=== PATIENT | female | born 1945 ===

== ENCOUNTER 2017-01-30 14:46 | Emergency (ER) | payer MEDICAID ==
[2017-01-30 14:46] VITALS: BMI 25.0
[2017-01-30 14:50] VITALS: O2SAT 97
[2017-01-30 15:36] LABS: RBC URINE 22 /hpf (0-3); URINE BACTERIA OCC (<OCC); URINE BILIRUBIN NEGATIVE (NEGATIVE); URINE BLOOD 3+ (NEGATIVE); URINE COLOR Straw (YELLOW); URINE GLUCOSE (UA) NORMAL (Normal); URINE KETONE NEGATIVE (NEGATIVE); URINE LEUKOCYTE ESTERASE 3+ Leu/uL (Negative); URINE PROTEIN NEGATIVE (NEGATIVE); URINE UROBILINOGEN NORMAL mg/dL (0.2-1.0); WBC URINE 128 /hpf (0-5)
--- NOTE | 2017-01-30 15:56 | C.PDOC ---
History Of Present Illness The patient, a 71 y/o female, presents to the ED for evaluation of dysuria since yesterday and vaginal bleeding. Patient states she was evaluated by her OB /DATABASE DEVELOPMENT PROJECT MANAGER yesterday and experienced bleeding from the area. Today, patient is experiencing dysuria and states her bleeding has lightened. Patient is scheduled for outpatient Ultrasound on 02/06. Patient denies fever, chills, abdominal pain, nausea, vomiting. Time Seen by Provider: 01/30/17 15:16 Chief Complaint (Nursing): Female Genitourinary History Per: Patient History/Exam Limitations: no limitations Onset/Duration Of Symptoms: Days Current Symptoms Are (Timing): Still Present Quality Of Discomfort: "Pain" Additional History Per: Patient Past Medical History Reviewed: Historical Data, Nursing Documentation, Vital Signs Vital Signs: Last Vital Signs Temp 98.0 F 01/30/17 17:32 Pulse 72 01/30/17 17:32 Resp 18 01/30/17 17:32 BP 194/80 H 01/30/17 17:32 Pulse Ox 97 01/30/17 17:32 - Medical History PMH: HTN Surgical History: No Surg Hx Family History: States: Unknown Family Hx - Social History Hx Alcohol Use: No Hx Substance Use: No Review Of Systems Except As Marked, All Systems Reviewed And Found Negative. Constitutional: Negative for: Fever, Chills Gastrointestinal: Negative for: Nausea, Vomiting, Abdominal Pain Genitourinary: Positive for: Dysuria, Vaginal Bleeding Physical Exam - Physical Exam Appears: Non-toxic, No Acute Distress Skin: Normal Color, Warm, Dry Head: Atraumatic, Normacephalic Eye(s): bilateral: Normal Inspection, EOMI Oral Mucosa: Moist Neck: Supple Chest: Symmetrical, No Deformity, No Tenderness Cardiovascular: Rhythm Regular Respiratory: Normal Breath Sounds Gastrointestinal/Abdominal: Soft, No Tenderness, No Guarding, No Rebound Back: Normal Inspection, No Vertebral Tenderness, No Paraspinal Tenderness Pelvic: Vaginal Bleeding (light spotting), Mass (abnormal soft mass tender to right vaginal wall side) Extremity: Normal ROM, No Tenderness, No Pedal Edema, No Deformity, No Swelling Neurological/Psych: Oriented x3, Normal Speech Gait: Steady ED Course And Treatment - Laboratory Results Result Diagrams: 01/30/17 15:48 01/30/17 15:48 Lab Interpretation: No Acute Changes O2 Sat by Pulse Oximetry: 97 (on RA) Pulse Ox Interpretation: Normal - CT Scan/US Pelvic/Transvaginal US Other Rad Studies (CT/US): Interpreted By Me, Read By Radiologist, Radiology Report Reviewed CT/US Interpretation: Accession No. : [id number]. Patient Name / ID : MANAV TERRAZAS / [id number]. Exam Date : 01/30/2017 15:50:44 ( Approved ). Study Comment : Sex / Age : F / 71Y. Creator : Alexa Barillas MD. Dictator : Alexa Barillas MD. Independent Marketing Consultant : Auto Body Repairer : Alexa Barillas MD. Approver2 : Report Date : 01/30/2017 16:26:26. My Comment : . HISTORY: pelvic mass and bleeding, pain. COMPARISON: None available. TECHNIQUE: Pelvis/transvaginal ultrasound. FINDINGS: UTERUS: Measures 7.0 x 4.2 x 5.2 cm. Heterogeneous uterine echotexture limits evaluation for small masses or fibroids. ENDOMETRIUM: Measures 2 mm in diameter. CERVIX: No cervical abnormality identified. RIGHT OVARY: Not visualized. LEFT OVARY: Not visualized. FREE FLUID: No significant free fluid noted. OTHER FINDINGS: None. IMPRESSION: Markedly limited study. Bilateral ovaries were not visualized. Heterogeneous uterine echotexture limits evaluation for small masses or fibroids. Endometrial thickness approximately 2 mm. Medical Decision Making Medical Decision Making: Impression: 71 y/o female with dysuria and bleeding Plan: * labs Progress Notes: labs and Pelvic US ordered and reviewed. Patient refuses full pelvic examination. US IMPRESSION: Markedly limited study. Bilateral ovaries were not visualized. Heterogeneous uterine echotexture limits evaluation for small masses or fibroids. Endometrial thickness approximately 2 mm. UA was positive for UTI. Macrobid was ordered. I explained results to patient and provided copy of US report. Advised follow up with pig handler and to take antibiotics. . Disposition Counseled Patient/Family Regarding: Diagnosis, Need For Followup, Rx Given - Disposition Disposition: HOME/ ROUTINE Disposition Time: 16:39 Condition: STABLE Additional Instructions: [place] el antibitico dos veces al da y asegrese de terminar de edith todos los antibiticos. Beber mucho lquido. Si se realiz un cultivo de orina, vuelva a llamar para obtener resultados en 2-3 jarvis para confirmar que el antibitico est tratando estuardo la infeccin urinaria. Debe seguir con ginecloga Prescriptions: Nitrofurantoin Macrocrystals [Macrobid] 1 cap PO BID #14 cap Instructions: Urinary Tract Infection in Women (DC) Print Language: [place] - POA Present On Arrival: None - Clinical Impression Clinical Impression: UTI (urinary tract infection), Vaginal mass - PA / CONCRETING SUPERVISOR / Resident Statement MD/DO has reviewed & agrees with the documentation as recorded. - Scribe Statement The provider has reviewed the documentation as recorded by the Scribe (Ligia Vaughan) All medical record entries made by the Scribe were at my direction and personally dictated by me. I have reviewed the chart and agree that the record accurately reflects my personal performance of the history, physical exam, medical decision making, and the department course for this patient. I have also personally directed, reviewed, and agree with the discharge instructions and disposition.
[2017-01-30 15:57] LABS: BASO % 0.8 % (0.0-2.0); EOS # 0.1 K/uL (0.0-0.7); EOS % 1.7 % (0.0-4.0); HEMATOCRIT 44.4 % (34.0-47.0); LYMPH # 1.2 K/uL (1.0-4.3); LYMPH % 29.6 % (20.0-40.0); MEAN CELL VOLUME 87.6 fL (81.0-99.0); MEAN CORPUSCULAR HEMOGLOBIN 28.6 pg (27.0-31.0); MEAN CORPUSCULAR HGB CONC 32.6 g/dL (33.0-37.0); MEAN PLATELET VOLUME 6.8 fL (7.2-11.7); MONO # 0.4 K/uL (0.0-0.8); MONO % 10.9 % (0.0-10.0); RED CELL DISTRIBUTION WIDTH 13.6 % (11.5-14.5)
[2017-01-30 16:06] LABS: CHLORIDE 96 mmol/L (98-107); POTASSIUM 3.3 mmol/L (3.6-5.2); SODIUM 137 mmol/L (132-148)
[2017-01-30 16:08] LABS: BILIRUBIN,TOTAL 0.6 mg/dL (0.2-1.3); GFR AFRICAN-AMERICAN > 60
[2017-01-30 16:09] LABS: ALB/GLOB RATIO 1.2 (1.0-2.1); ALKALINE PHOSPHATASE 66 U/L (38-126); ALT/SGPT 18 U/L (9-52); AST/SGOT 41 U/L (14-36); BLOOD UREA NITROGEN 14 mg/dL (7-17); CALCIUM 9.2 mg/dl (8.6-10.4); CARBON DIOXIDE 28 mmol/L (22-30); GLUCOSE,RANDOM 101 mg/dL (65-105)
--- NOTE | 2017-01-30 16:28 | US ---
HISTORY: pelvic mass and bleeding, pain COMPARISON: None available. TECHNIQUE: Pelvis/transvaginal ultrasound FINDINGS: UTERUS: Measures 7.0 x 4.2 x 5.2 cm. Heterogeneous uterine echotexture limits evaluation for small masses or fibroids. ENDOMETRIUM: Measures 2 mm in diameter. CERVIX: No cervical abnormality identified. RIGHT OVARY: Not visualized. LEFT OVARY: Not visualized. FREE FLUID: No significant free fluid noted. OTHER FINDINGS: None. IMPRESSION: Markedly limited study. Bilateral ovaries were not visualized. Heterogeneous uterine echotexture limits evaluation for small masses or fibroids. Endometrial thickness approximately 2 mm.
[2017-01-30 17:33] VITALS: BP 194/80; PULSE 72; RESP 18; TEMP 98
== END 2017-01-30 17:40 | disposition home or self-care (01) ==
LOC: C.ER 14:46
DX: N39.0 Urinary tract infection, site not specified (principal); N89.8 Other specified noninflammatory disorders of vagina; I10 Essential (primary) hypertension

== ENCOUNTER 2017-02-26 01:15 | Emergency (ER) | payer MEDICAID ==
[2017-02-26 01:15] VITALS: BMI 25.0
[2017-02-26 01:29] VITALS: RESP 18
[2017-02-26] MEDS ORDERED: Sodium Chloride 0.9% 500 ML IV STA (01:48)
[2017-02-26] MEDS ORDERED: Sodium Chloride 0.9% 1,000 ML ONE (01:52)
[2017-02-26 02:07] LABS: BASO % 0.9 % (0.0-2.0); EOS # 0.1 K/uL (0.0-0.7); EOS % 1.9 % (0.0-4.0); HEMATOCRIT 43.7 % (34.0-47.0); LYMPH # 1.5 K/uL (1.0-4.3); LYMPH % 32.7 % (20.0-40.0); MEAN CELL VOLUME 87.5 fL (81.0-99.0); MEAN CORPUSCULAR HEMOGLOBIN 28.7 pg (27.0-31.0); MEAN CORPUSCULAR HGB CONC 32.8 g/dL (33.0-37.0); MONO # 0.5 K/uL (0.0-0.8); MONO % 9.8 % (0.0-10.0); NRBC % 0.2 % (0.0-2.0); RED CELL DISTRIBUTION WIDTH 13.9 % (11.5-14.5); WHITE BLOOD COUNT 4.7 K/uL (4.8-10.8)
[2017-02-26 02:13] LABS: RBC URINE 188 /hpf (0-3); URINE BILIRUBIN NEGATIVE (NEGATIVE); URINE BLOOD 3+ (NEGATIVE); URINE COLOR Red (YELLOW); URINE GLUCOSE (UA) NORMAL (Normal); URINE KETONE NEGATIVE (NEGATIVE); URINE LEUKOCYTE ESTERASE NEG Leu/uL (Negative); URINE PROTEIN NEGATIVE (NEGATIVE); URINE UROBILINOGEN NORMAL mg/dL (0.2-1.0); WBC URINE 9 /hpf (0-5)
--- NOTE | 2017-02-26 02:21 | C.PDOC ---
History Of Present Illness 71 y/o female here complaining of vaginal bleeding from a known mass, needing to change a pad every hour and seeing large clots. She reports that she has a biopsy of the mass scheduled for 4 days from today. Denies dizziness, lightheadedness, or other complaint. Time Seen by Provider: 02/26/17 01:31 Chief Complaint (Nursing): Female Genitourinary History Per: Patient History/Exam Limitations: no limitations Onset/Duration Of Symptoms: Days Current Symptoms Are (Timing): Worse Severity: None Reports Recently: Treated By A Physician Recent travel outside of the [place]: No Additional History Per: Patient Past Medical History Vital Signs: Last Vital Signs Temp 98.8 F 02/26/17 04:27 Pulse 85 02/26/17 04:27 Resp 18 02/26/17 04:27 BP 180/85 H 02/26/17 04:27 Pulse Ox 97 02/26/17 04:38 - Medical History PMH: HTN Family History: States: Unknown Family Hx - Social History Hx Alcohol Use: No Hx Substance Use: No - Immunization History Hx Tetanus Toxoid Vaccination: No Hx Influenza Vaccination: Yes Hx Pneumococcal Vaccination: Yes Review Of Systems Except As Marked, All Systems Reviewed And Found Negative. Genitourinary: Positive for: Vaginal Bleeding Physical Exam - Physical Exam Appears: Well, No Acute Distress Skin: Normal Color, Warm, Dry Eye(s): bilateral: Normal Inspection, PERRL, EOMI Nose: Normal Throat: Normal Neck: Normal Cardiovascular: Rhythm Regular Respiratory: Normal Breath Sounds Gastrointestinal/Abdominal: Normal Exam Back: Normal Inspection Pelvic: Vaginal Bleeding (There is a vascular, bleeding mass protruding from the entrance of the vagina. There are also large clots present. No purulence. Patient unable to tolerate a speculum or bimanual exam. ) Extremity: Normal ROM ED Course And Treatment - Laboratory Results Result Diagrams: 02/26/17 02:04 02/26/17 02:29 O2 Sat by Pulse Oximetry: 97 (RA) Pulse Ox Interpretation: Normal Progress Note: CBC shows no anemia. PHOTOGRAPHY AND PRINTS CURATOR contacted who will see the patient in the department. Dr. Martínez saw the patient in the department who removed part of the mass and requested that it be sent to pathology. Patient was given Morphine IV for pain control following the procedure. On reevaluation the patient is resting comfortably, bleeding has subsided and pt is comfortable going home. Follow up instructions given. All questions answered. Disposition - Disposition Referrals: Non [facility] Provider, [Primary Care Provider] - Disposition: HOME/ ROUTINE Disposition Time: 04:31 Condition: STABLE Additional Instructions: Please follow up with FRONT OFFICE SPECIALIST Increase PO fluids Take pain medications as needed Return to ER if worse Prescriptions: Acetaminophen with Codeine [Tylenol with Codeine #3 Tablet] 1 - 2 each PO QID # 14 tablet Forms: General Discharge Instructions - Clinical Impression Clinical Impression: Vaginal mass, Vagina bleeding - Scribe Statement The provider has reviewed the documentation as recorded by the Scribe Lottie Nicolas
[2017-02-26] MEDS ORDERED: Silver Nitrate Topical - Stick ONE ×2 (02:33→02:35)
[2017-02-26] MEDS ORDERED: Morphine 4 MG/ML VIAL IV ONE (02:39)
[2017-02-26 02:41] LABS: CHLORIDE 98 mmol/L (98-107); POTASSIUM 3.6 mmol/L (3.6-5.2); SODIUM 137 mmol/L (132-148)
[2017-02-26 02:43] LABS: ALB/GLOB RATIO 1.3 (1.0-2.1); AST/SGOT 28 U/L (14-36); BILIRUBIN,TOTAL 0.3 mg/dL (0.2-1.3); CARBON DIOXIDE 27 mmol/L (22-30); GFR AFRICAN-AMERICAN > 60; TOTAL PROTEIN 7.6 g/dL (6.3-8.3)
[2017-02-26] MEDS ORDERED: Silver Nitrate Topical - Stick TOP ONE (02:43)
[2017-02-26 02:44] LABS: ALKALINE PHOSPHATASE 58 U/L (38-126); ALT/SGPT 28 U/L (9-52); BLOOD UREA NITROGEN 19 mg/dL (7-17); CALCIUM 9.2 mg/dl (8.6-10.4); GLUCOSE,RANDOM 107 mg/dL (65-105)
--- NOTE | 2017-02-26 03:03 | CP.PCM.CON ---
History of Present Illness - History of Present Illness History of Present Illness: 71 yr came with c/o vaginal bleeding started 3 weeks ago got heavy from 5 pm, using few pads. pt states there is mass coming from vagina. pt had a d7c 2 weeks ago. obhx 2 x pmh htn med as per list all nkda psh d&c soch denies sse small mass protuding from vagina coming from vagina/cervix. it was remivd with ring forcep and dend to pathology. left lateral wall bleeding stoped with silver nitrate stick. no active bleeeding Review of Systems - Reproductive: Female Reproductive:Female: Post Menopausal, Abnormal Vaginal Bleeding Past Patient History - Infectious Disease Hx of Infectious Diseases: None - Past Social History Smoking Status: Never Smoked - CARDIAC Hx Hypertension: Yes - GENITOURINARY/GYNECOLOGICAL Other/Comment: FIBROIDS,, VAGINAL MASS - PSYCHIATRIC Hx Substance Use: No - SURGICAL HISTORY Hx Surgeries: No - ANESTHESIA Hx Anesthesia: No Meds Allergies/Adverse Reactions: Allergies Allergy/AdvReac Type Severity Reaction Status Date / Time Penicillins Allergy Severe ANAPHYLAXIS Verified 02/26/17 01:24 - Medications Medications: Current Medications Sodium Chloride (Sodium Chloride 0.9%) 500 mls @ 200 mls/hr IV .Q2H30M STA Stop: 02/26/17 04:17 Last Admin: 02/26/17 01:45 Dose: 200 mls/hr Physical Exam - Constitutional Appears: Well - Exam External exam: NORMAL EXTERNAL EXAM Speculum exam: Vaginal Bleeding Bimanual exam: NORMAL BIMANUAL EXAM (except mass coming from vagina) Results - Vital Signs Recent Vital Signs: Last Vital Signs Temp 99.2 F 02/26/17 01:26 Pulse 116 H 02/26/17 01:26 Resp 18 02/26/17 01:26 BP 146/85 02/26/17 01:26 Pulse Ox 97 02/26/17 02:22 - Labs Result Diagrams: 02/26/17 02:04 02/26/17 02:29 Labs: Laboratory Results - last 24 hr 02/26/17 02/26/17 02/26/17 02:03 02:04 02:29 WBC 4.7 L RBC 5.00 Hgb 14.4 Hct 43.7 MCV 87.5 MCH 28.7 MCHC 32.8 L RDW 13.9 Plt Count 260 MPV 7.0 L Neut % (Auto) 54.7 Lymph % (Auto) 32.7 Clinch % (Auto) 9.8 Eos % (Auto) 1.9 Baso % (Auto) 0.9 Neut # 2.6 Lymph # 1.5 Clinch # 0.5 Eos # 0.1 Baso # 0.0 Sodium 137 Potassium 3.6 Chloride 98 Carbon Dioxide 27 Anion Gap 15 BUN 19 H Creatinine 0.9 Est GFR ( Amer) > 60 Est GFR (Non-Af Amer) > 60 Random Glucose 107 H Calcium 9.2 Total Bilirubin 0.3 AST 28 ALT 28 Alkaline Phosphatase 58 Total Protein 7.6 Albumin 4.3 Globulin 3.3 Albumin/Globulin Ratio 1.3 Urine Color Red Urine Clarity Clear Urine pH 7.0 Ur Specific [place] 1.003 Urine Protein Negative Urine Glucose (UA) Normal Urine Ketones Negative Urine Blood 3+ H Urine Nitrate Negative Urine Bilirubin Negative Urine Urobilinogen Normal Ur Leukocyte Esterase Neg Urine WBC (Auto) 9 H Urine RBC (Auto) 188 H Ur Squamous Epith Cells < 1 Assessment & Plan - Assessment and Plan (Free Text) Assessment: 71 yr with post menapusal bleeding/cervical mass/vaginal ass Plan: sebd to pathology mass no active bleeeeding motvidya , prn f/u in clinic - Date & Time Date: 02/26/17 Time: 03:15
[2017-02-26 04:28] VITALS: BP 180/85; PULSE 85; TEMP 98.8
[2017-02-26 04:36] VITALS: O2SAT 97
--- NOTE | 2017-03-09 16:58 | CP.PCM.PN ---
Subjective - Date & Time of Evaluation Date of Evaluation: 03/09/17 Time of Evaluation: 17:00 - Subjective Subjective: pathology result from [facility] 02/26/[address] Aguilar in [facility]. 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 results were faxed to the clinic. pateint was called and will follow up in the clinic Objective - Vital Signs/Intake and Output Vital Signs (last 24 hours): Temp Pulse Resp BP Pulse Ox 98.8 F 85 18 180/85 H 97 02/26/17 04:27 02/26/17 04:27 02/26/17 04:27 02/26/17 04:27 02/26/17 04:39 - Labs Labs: 02/26/17 02:04 02/26/17 02:29
== END 2017-02-26 04:43 | disposition home or self-care (01) ==
LOC: C.ER 01:15 → SUPCPDRO 01:15 → C.ER 04:43
DX: N95.0 Postmenopausal bleeding (principal); N88.8 Other specified noninflammatory disorders of cervix uteri
CPT/HCPCS: 80053; 81001; 84233; 85025; 88305; 88342; 96374; 99285; J2270; J7040